=== PATIENT | male | born 1985 | race Caucasian/White ===

== ENCOUNTER 2024-07-16 12:43 | Emergency (ER) | payer MEDICAID ==
[~2024-07-16] VITALS: Ht 167.6 cm; Wt 82.0 kg
[2024-07-16 12:46] VITALS: O2SAT 100
[2024-07-16] MEDS: LEVETIRACETAM 1000MG PREMIX 100 ML IV ONE (13:18)
[2024-07-16 14:35] LABS: BASOPHILS % 0.3 % (0.0-2.0); EOSINOPHILS % 0.9 % (0.0-5.0); HEMATOCRIT. 47.7 % (42.0-52.0); LYMPHOCYTES % 11.4 % (20.0-50.0); MEAN CORPUSCULAR HEMOGLOBIN 29.6 pg (28.0-32.0); MEAN CORPUSCULAR HGB CONC 33.6 g/dL (31.0-37.0); MEAN PLATELET VOLUME 8.7 fl (7.4-10.4); MONOCYTES % 6.7 % (2.0-8.0); NEUTROPHILS % 80.7 % (40.0-76.0); PLATELET 293 x1000/uL (130-400); RED BLOOD CELL COUNT 5.42 mill/uL (4.7-6.1); RED CELL DISTRIBUTION WIDTH 13.6 % (11.6-14.6); WHITE BLOOD COUNT 11.9 x1000/uL (4.5-11.0)
[2024-07-16 14:50] LABS: CHLORIDE 106 mEq/L (98-107); POTASSIUM 3.8 mEq/L (3.5-5.1); SODIUM 139 mEq/L (136-145)
[2024-07-16 14:51] LABS: CALCIUM 9.4 mg/dL (8.7-10.4); CARBON DIOXIDE 26 mEq/L (21-32)
[2024-07-16 14:56] LABS: CREATININE 0.9 mg/dL (0.6-1.3); GLUCOSE 108 mg/dL (70-105); UREA NITROGEN BLOOD 8 mg/dL (9-23)
[2024-07-16 15:03] LABS: ETHANOL BLOOD < 10 mg/dL (<10)
[2024-07-16 21:07] VITALS: BP 96/62; PULSE 73; RESP 16; TEMP 36.66960; O2SAT 100
== END 2024-07-16 21:10 | disposition short-term general hospital (02) ==
LOC: ER 12:47 → CANBEDREQ 16:01 → ER 21:10
DX: R56.9 Unspecified convulsions (principal); G93.40 Encephalopathy, unspecified; E11.9 Type 2 diabetes mellitus without complications; I10 Essential (primary) hypertension; Z86.73 Personal history of transient ischemic attack (TIA), and cerebral infarction without residual deficits
CPT/HCPCS: 80048; 80320; 83735; 85025; 36415; 71045; 70450; 93005; 96365; 99285; J1953; G0480